=== PATIENT | female | born 1990 | race Hispanic/Latino ===

== ENCOUNTER 2016-07-08 07:01 | Day surgery (SDC) | payer BC ==
[2016-04-29 12:04] VITALS: BMI 25.1
[2016-07-08] MEDS ORDERED: Lidocaine 1% Inj (20ml) ONE (08:38)
[2016-07-08] MEDS ORDERED: Propofol 10 mg/ml Inj (20 ML) ONE ×2 (08:38→08:44)
[2016-07-08] MEDS ORDERED: Sodium Chloride 0.9% 1,000 ML IV SCH (08:45)
[2016-07-08 09:13] VITALS: O2SAT 100
[2016-07-08 10:06] VITALS: BP 116/68; PULSE 73; RESP 16; TEMP 97
== END 2016-07-08 09:59 | disposition home or self-care (01) ==
LOC: ENDO 07:01
PROVIDERS: ATTEND Internal Medicine Gastroenterology
DX: K29.70 Gastritis, unspecified, without bleeding (principal); K44.9 Diaphragmatic hernia without obstruction or gangrene
CPT/HCPCS: 43235; 84703; J2704; J7040 ×2